=== PATIENT | male | born 1995 | race African-American/Black ===

== ENCOUNTER 2019-05-17 16:35 | Emergency (ER) | payer SELFPAY ==
--- NOTE | 2019-05-17 16:49 | PDOC ---
Rapid Medical Evaluation Time Seen by Provider: 05/17/19 16:46 Medical Evaluation: 05/17/19 16:46 CC: Passive SI PE: no focal deficits Orders: labs, urine Patient will proceed to ER for complete evaluation. Discharge Disposition - Diagnosis Depression - Referrals - Patient Instructions - Post Discharge Activity
[2019-05-17 16:54] VITALS: BMI 18.6
--- NOTE | 2019-05-17 17:16 | PDOC ---
History of Present Illness - General Chief Complaint: Suicidal Stated Complaint: SUCIDAL Time Seen by Provider: 05/17/19 16:46 History Source: Patient Exam Limitations: No Limitations - History of Present Illness Initial Comments: 05/17/19 17:15 Vitaliy Marie is a 24M with PMH suicide attempt and asthma presenting today with passive wish. Patient reports that he has been feeling depressed for months now, says that he drank a small amount of bleach a few months ago and since then his physical condition has worsened. Has intermittent chest pain and epigastric pain that may or may not be related to PO intake. Says he has not eaten much, had "one noodle" for breakfast with water. 3 hours of sleep last night. Says he feels isolated from his family and friends, who are improving their lives without him while he struggles to try and improve his own. Often tries to draw in his free time as an extension of this, subject matter is pop culture without any concerning visuals. Also does parkour with some foot pain after a fall. Today woke up, opened his eyes, and says he felt like he wanted to . Does not have a plan, did not attempt anything today. Denies HI. Says that he often sees his own casket, says it looks like a deep body of water that he will drown in. Denies any prior psych history, has never been diagnosed with a psych disorder and has no PMD f/u or other resources. Tried to walk to hospital but almost go run over by a car due to unsteady gait, ultimately took the bus here for help. Currently denies chest pain, epigastric pain. Denies HARDING, SOB, leg pain/swelling , dizziness. PMH asthma, no inhaler Possible seafood allergy Smokes <1 pack per week, last alcohol was 1 bottle of vodka 3 days ago, smoke marijuana intermittently Past History - Past Medical History Allergies/Adverse Reactions: Allergies Allergy/AdvReac Type Severity Reaction Status Date / Time No Known Allergies Allergy Verified 05/17/19 16:54 Asthma: Yes COPD: No - Immunization History Immunization Up to Date: Yes - Psycho Social/Smoking Cessation Hx Smoking History: Current every day smoker Have you smoked in the past 12 months: Yes Information on smoking cessation initiated: No Hx Alcohol Use: Yes (SOCIAL) Drug/Substance Use Hx: No (DENIES) Review of Systems - Review of Systems Able to Perform ROS?: Yes Constitutional: No: Chills, Fever HEENTM: No: Symptoms Reported Respiratory: No: Cough, Shortness of Breath, Wheezing Cardiac (ROS): Yes: Chest Tightness. No: Chest Pain, Irregular Heart Rate, Palpitations, Syncope ABD/GI: Yes: Poor Appetite, Poor Fluid Intake. No: Constipated, Diarrhea, Difficulty Swallowing, Nausea, Vomiting : No: Symptoms Reported Musculoskeletal: No: Symptoms Reported Integumentary: No: Symptoms Reported Neurological: No: Headache, Numbness, Tingling Psychiatric: Yes: Depression, Sleep Pattern Change, Emotional Problems, Change in Appetite Endocrine: No: Symptoms Reported Hematologic/Lymphatic: No: Symptoms Reported All Other Systems: Reviewed and Negative *Physical Exam - Vital Signs Last Vital Signs Temp Pulse Resp BP Pulse Ox 98.2 F 62 17 135/76 98 05/17/19 16:46 05/17/19 16:46 05/17/19 16:46 05/17/19 16:46 05/17/19 16:46 - Physical Exam General Appearance: Yes: Nourished, Appropriately Dressed, Thin. No: Apparent Distress HEENT: positive: EOMI, RICHA, Normal ENT Inspection, Normal Voice, Symmetrical, Pharynx Normal, Hearing Grossly Normal. negative: Scleral Icterus (R), Scleral Icterus (L), Muffled/Hoarse voice Neck: positive: Trachea midline, Normal Thyroid, Supple. negative: Tender, Lymphadenopathy (R), Lymphadenopathy (L), Tender lateral, Tender midline Respiratory/Chest: positive: Lungs Clear, Normal Breath Sounds. negative: Chest Tender, Respiratory Distress, Accessory Muscle Use, Crackles, Rales, Rhonchi, Stridor, Wheezing Cardiovascular: positive: Regular Rhythm, Regular Rate. negative: Murmur Gastrointestinal/Abdominal: positive: Normal Bowel Sounds, Flat, Soft. negative : Tender, Guarding, Rebound Musculoskeletal: positive: Normal Inspection. negative: CVA Tenderness Extremity: positive: Normal Capillary Refill, Normal Inspection, Normal Range of Motion, Pelvis Stable. negative: Tender, Pedal Edema, Swelling Integumentary: positive: Normal Color, Dry, Warm. 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 Poor PO intake, poor sleep. No plan but passive SI without HI. Keeping for psych eval and further disposition. No evidence of withdrawal at this time. Low suspicion of GI etiology of abdominal pain, no other GI symptoms, non-tender abdomen, no concerning PMH, no CT indicated at this time. - CMP for lyte eval given poor PO - CBC for infection eval vs. pancreatitis - lipase for epigastric pain/alcohol use - CXR/ECG for eval epigastric pain - UA/UC for UTI - ASA/APAP/ETOH/UTOX for tox eval - TSH for eval dysthymia as cause for depression Consult to Dr. Arriaza paged. 05/17/19 18:20 Labs notable for - CMP WNL - CBC WNL - Coags WNL - lipase WNL - ETOH low 05/17/19 18:22 CXR unremarkable for pathology on preliminary read. 05/17/19 18:[address] Arriaza, agrees to eval patient in the AM, put on 1:1, medically clear. Will sign out to PM team, plan for overnight obs and psych eval in the AM for further dispo planning for psych admission. Discharge - Discharge Information Problems reviewed: Yes Clinical Impression/Diagnosis: Suicidal ideation Depression Qualifiers: Depression Type: unspecified Qualified Code(s): F32.9 - Major depressive disorder, single episode, unspecified Condition: Stable - Follow up/Referral - Patient Discharge Instructions - Post Discharge Activity Work/Back to School Note: My Personal Safety Plan
[2019-05-17 17:35] LABS: BASO % 0.9 % (0-2.0); EOS % 4.4 % (0-4.5); HEMATOCRIT 42.3 % (35.4-49); HEMOGLOBIN 14.2 GM/dL (11.7-16.9); MCH 29.1 pg (25.7-33.7); MCHC 33.6 g/dl (32.0-35.9); MEAN CELL VOLUME 86.8 fl (80-96); MEAN PLT VOLUME 9.2 fl (7.5-11.1); MONO % 6.3 % (3.8-10.2); NEUT % 58.4 % (42.8-82.8); PLATELET COUNT 211 K/MM3 (134-434); RBC 4.87 M/mm3 (4.00-5.60); RDW 13.6 % (11.9-15.9)
[2019-05-17] MEDS ORDERED: PANTOPRAZOLE 40 MG TABLET PO ONE (17:51)
[2019-05-17] MEDS ORDERED: ONDANSETRON *ODT* 4 MG TABLET SL ONE (17:51)
[2019-05-17] MEDS ORDERED: ONDANSETRON *ODT* 4 MG TABLET ONE (17:58)
[2019-05-17] MEDS ORDERED: PANTOPRAZOLE 40 MG TABLET ONE (17:58)
[2019-05-17 18:08] LABS: ALBUMIN 4.5 g/dl (3.4-5.0); BILIRUBIN,TOTAL 0.4 mg/dL (0.2-1); CALCIUM 9.6 mg/dL (8.5-10.1); CREATININE 1.1 mg/dL (0.55-1.3); POTASSIUM 3.7 mmol/L (3.5-5.1); TOT PROT 8.3 g/dl (6.4-8.2)
[2019-05-17] MEDS ORDERED: MAG HYDROX/AL HYDROX/SIMETH 30 ML UNIT-DOSE CUP PO ONE (18:14)
--- NOTE | 2019-05-17 18:14 | PDOC ---
Documentation entered by Louis Junior SCRIBE, acting as scribe for Alicia Pace DO. Alicia Pace DO: This documentation has been prepared by the Vernon louie Daniel, SCRIBE, under my direction and personally reviewed by me in its entirety. I confirm that the documentation accurately reflects all work, treatment, procedures, and medical decision making performed by me. Attending Attestation - Resident Resident Name: Ant Vazquez - ED Attending Attestation I have performed the following: I have examined & evaluated the patient, The case was reviewed & discussed with the resident, I agree w/resident's findings & plan, Exceptions are as noted - HPI HPI: 05/17/19 17:54 The patient is a 24 year old male with a past medical history of depression and past suicide attempts here today for evaluation of suicidal thoughts. The patient reports that he feels depressed and isolated. He states that since he drank household bleach 9 months ago he has had diffuse chest, abdominal, and epigastric pain. He reports that he woke up this morning with suicidal thoughts but denies having any plans. He denies any homicidal ideations. Patient notes some intermittent visual hallucinations that he describes as bright lights. He also reports that he engages in dangerous activities without any regard for his personal safety such as parkour. Patient denies headache, lightheadedness. Denies fever, chills. Denies shortness of breath. Denies nausea, vomiting, diarrhea. Allergies: NKA - Physicial Exam PE: 05/17/19 17:54 Constitutional: Awake, alert, oriented. Head: Normocephalic. Atraumatic Eyes: PERRL. EOMI. Conjunctivae are not pale. ENT: Mucous membranes are moist and intact. Posterior pharynx without exudates or erythema. Uvula midline. Neck: Supple. Full ROM. No lymphadenopathy. Cardiovascular: Regular rate. Regular rhythm. S1, S2 regular. Distal pulses are 2+ and symmetric. Pulmonary/Chest: No evidence of respiratory distress. Clear to auscultation bilaterally No wheezing, rales or rhonchi. Abdominal: Soft and non-distended. There is no tenderness. No rebound, guarding or rigidity. No organomegaly. No palpable masses. Good bowel sounds. Back: No CVA tenderness. Musculoskeletal: No edema. No cyanosis. No clubbing. Full range of motion in all extremities. Nocalf tenderness. Radial/pedal pulses are intact and 2+ bilaterally Skin: Skin is warm and dry. No petechiae. No purpura. Neurological: Alert and oriented to person, place, and time. Cranial nerves II -XII are grossly intact. Normal speech. Strength is grossly symmetric. No sensory deficits. Psychiatric: +flat affect. +depressed appearing. - Medical Decision Making 05/17/19 18:10 a/p: 24yo male with SI/depression and prior SI attempt by drinking bleach a few months ago -pt states he has tried to see a psychiatrist in the past and tried to see a doc in the past but didn't have the funds -admits to sometimes seeing lights - runs from the lights -pt denies HI -denies auditory hallucinations -pt states he tries all dangerous/adventurous sports/activities just to see if he will survive -pt denies plan for SI at this time -denies taking meds today -admits to drinking a bottle of vodka a few days ago- just to go to sleep forever -will send labs -admits to gastric burning/cp - since drinking bleach months ago -will consult psych - call placed to Dr. Amaya -will medicate -pt on 1:1 05/17/19 19:15 cxr clear labs reviewed and stable pt is medically clear for psych eval resident discussed the case with Dr. Amaya who will eval the patient in the AM 05/18/19 01:09 pt signed out to the oncoming ED team pending psych eval Heart Score/ECG Review - ECG Intrepretation Comment:: 05/17/19 19:34 sinus at 74, nl axis, nl interval, no acute st/t wave findings
[2019-05-17 18:19] LABS: INR 1.13 (0.83-1.09); PROTHROMBIN TIME (PATIENT) 13.4 SEC (9.7-13.0)
[2019-05-17 18:22] LABS: ACTIVATED PTT 35.2 SECONDS (25.2-36.5)
[2019-05-17] MEDS ORDERED: MAG HYDROX/AL HYDROX/SIMETH 30 ML UNIT-DOSE CUP ONE (18:30)
[2019-05-17 18:35] LABS: LIPASE 92 U/L (73-393)
--- NOTE | 2019-05-17 19:10 | PDOC ---
*Physical Exam - Vital Signs Last Vital Signs Temp Pulse Resp BP Pulse Ox 98.2 F 62 17 135/76 98 05/17/19 16:46 05/17/19 16:46 05/17/19 16:46 05/17/19 16:46 05/17/19 16:46 ED Treatment Course - LABORATORY CBC & Chemistry Diagram: 05/17/19 17:15 05/17/19 17:15 - ADDITIONAL ORDERS Additional order review: Laboratory Results 05/17/19 05/17/19 05/17/19 17:28 17:15 17:15 PT with INR 13.40 H INR 1.13 H PTT (Actin FS) 35.2 Sodium Potassium Chloride Carbon Dioxide Anion Gap BUN Creatinine Est GFR (CKD-EPI)AfAm Est GFR (CKD-EPI)NonAf Random Glucose Calcium Total Bilirubin AST ALT Alkaline Phosphatase Total Protein Albumin Lipase 92 TSH Salicylates < 1.7 L Acetaminophen <2.0 Alcohol, Quantitative < 3 05/17/19 17:15 PT with INR INR PTT (Actin FS) Sodium 136 Potassium 3.7 Chloride 100 Carbon Dioxide 27 Anion Gap 9 BUN 13.0 Creatinine 1.1 Est GFR (CKD-EPI)AfAm 108.32 Est GFR (CKD-EPI)NonAf 93.46 Random Glucose 85 Calcium 9.6 Total Bilirubin 0.4 AST 27 ALT 32 Alkaline Phosphatase 87 Total Protein 8.3 H Albumin 4.5 Lipase TSH 1.11 Salicylates Acetaminophen Alcohol, Quantitative 05/17/19 17:15 RBC 4.87 MCV 86.8 MCHC 33.6 RDW 13.6 MPV 9.2 Neutrophils % 58.4 Lymphocytes % 30.0 Monocytes % 6.3 Eosinophils % 4.4 Basophils % 0.9 - Medications Given in the ED: ED Medications Discontinued Medications Generic Name Dose Route Start Last Admin Trade Name Freq PRN Reason Stop Dose Admin Al Hydroxide/Mg Hydroxide 30 ml 05/17/19 18:14 05/17/19 18:50 Mylanta Oral Suspension - PO 05/17/19 18:15 30 ml ONCE ONE Administration Ondansetron HCl 4 mg 05/17/19 17:51 05/17/19 18:01 Zofran Odt - SL 05/17/19 17:52 4 mg ONCE ONE Administration Pantoprazole Sodium 40 mg 05/17/19 17:51 05/17/19 18:01 Protonix - PO 05/17/19 17:52 40 mg ONCE ONE Administration Medical Decision Making - Medical Decision Making 05/17/19 19:09 no other pmhx depressed, suicidal without a plan feels isolated from family and friends Dr. Amaya has been called coming in the morning labs wnl Utox to collect. signed out to Dr. Richey 05/30/19 21:42 Discharge - Discharge Information Problems reviewed: Yes Clinical Impression/Diagnosis: Suicidal ideation Depression Qualifiers: Depression Type: unspecified Qualified Code(s): F32.9 - Major depressive disorder, single episode, unspecified Condition: Stable Disposition: HOME - Follow up/Referral - Patient Discharge Instructions Patient Printed Discharge Instructions: DI for Suicidal Ideation-Adult Additional Instructions: You were seen and evaluated in the [place]. Please follow up with your PCP in the next week. Return to the ED with any or concerning symptoms. If you ever feel like hurting yourself or others please immediately call 911 or come to the nearest emergency department. We are always here to help. - Post Discharge Activity Work/Back to School Note: My Personal Safety Plan
[2019-05-18 02:05] LABS: PH,URINE 5.5 (5.0-8.0); URINE APPEARANCE CLEAR; URINE BILIRUBIN NEGATIVE (NEGATIVE); URINE COLOR YELLOW; URINE GLUCOSE (UA) NEGATIVE (NEGATIVE); URINE KETONE NEGATIVE (NEGATIVE); URINE LEUK ESTERASE NEGATIVE (NEGATIVE); URINE NITRITE NEGATIVE (NEGATIVE); URINE PROTEIN NEGATIVE (NEGATIVE); URINE UROBILINOGEN 0.2 mg/dL (0.2-1.0)
[2019-05-18 02:14] LABS: COCAINE, UR NEGATIVE ng/ml (CUTOFF=300); METHADONE, UR NEGATIVE ng/ml (CUTOFF=300); OPIATES, URI NEGATIVE ng/ml (CUTOFF=300); PHENCYCLIDINE,URINE NEGATIVE ng/ml (CUTOFF=25); URINE AMPHETAMINES NEGATIVE ng/ml (CUTOFF=500); URINE BARBITURATES NEGATIVE ng/ml (CUTOFF=200); URINE BENZODIAZEPINES NEGATIVE ng/ml (CUTOFF=200)
--- NOTE | 2019-05-18 07:38 | PDOC ---
*Physical Exam - Vital Signs Last Vital Signs Temp Pulse Resp BP Pulse Ox 98.3 F 64 19 117/78 100 05/18/19 07:25 05/18/19 07:25 05/18/19 07:25 05/18/19 07:25 05/18/19 07:25 ED Treatment Course - LABORATORY CBC & Chemistry Diagram: 05/17/19 17:15 05/17/19 17:15 - ADDITIONAL ORDERS Additional order review: Laboratory Results 05/18/19 05/18/19 01:35 01:35 Urine Color Yellow Urine Appearance Clear Urine pH 5.5 Ur Specific [place] 1.016 Urine Protein Negative Urine Glucose (UA) Negative Urine Ketones Negative Urine Blood Negative Urine Nitrite Negative Urine Bilirubin Negative Urine Urobilinogen 0.2 Ur Leukocyte Esterase Negative Opiates Screen Negative Methadone Screen Negative Barbiturate Screen Negative Phencyclidine Screen Negative Ur Amphetamines Screen Negative MDMA (Ecstasy) Screen Negative Benzodiazepines Screen Negative Cocaine Screen Negative U Marijuana (THC) Screen Negative 05/17/19 17:15 RBC 4.87 MCV 86.8 MCHC 33.6 RDW 13.6 MPV 9.2 Neutrophils % 58.4 Lymphocytes % 30.0 Monocytes % 6.3 Eosinophils % 4.4 Basophils % 0.9 - Medications Given in the ED: ED Medications Discontinued Medications Generic Name Dose Route Start Last Admin Trade Name Osmany PRN Reason Stop Dose Admin Al Hydroxide/Mg Hydroxide 30 ml 05/17/19 18:14 05/17/19 18:50 Mylanta Oral Suspension - PO 05/17/19 18:15 30 ml ONCE ONE Administration Ondansetron HCl 4 mg 05/17/19 17:51 05/17/19 18:01 Zofran Odt - SL 05/17/19 17:52 4 mg ONCE ONE Administration Pantoprazole Sodium 40 mg 05/17/19 17:51 05/17/19 18:01 Protonix - PO 05/17/19 17:52 40 mg ONCE ONE Administration Medical Decision Making - Medical Decision Making 05/18/19 07:[address] Erickson 24yo M suicidal ideation, denies plan, pending psychiatric evaluation Medically cleared AFVSS, comfortable Diet order is placed 05/18/19 10:33 Patient seen and evaluated by psychiatry, Dr. Amaya Cleared for discharge by psychiatry Dispo: Home Discharge - Discharge Information Problems reviewed: Yes Clinical Impression/Diagnosis: Suicidal ideation Depression Qualifiers: Depression Type: unspecified Qualified Code(s): F32.9 - Major depressive disorder, single episode, unspecified Condition: Stable Disposition: HOME - Admission No - Follow up/Referral - Patient Discharge Instructions Patient Printed Discharge Instructions: DI for Suicidal Ideation-Adult Additional Instructions: You were seen and evaluated in the [place] [facility]. Please follow up with your PCP in the next week. Return to the ED with any or concerning symptoms. If you ever feel like hurting yourself or others please immediately call 911 or come to the nearest emergency department. We are always here to help. - Post Discharge Activity Work/Back to School Note: My Personal Safety Plan
--- NOTE | 2019-05-18 10:31 | CON.PSY ---
Psychiatry Consult Chief Complaint: 24 Year old male, homeless for the past year , had been staying at [facility] for Chaz [facility]ers. patientv reports having drank a dye tub tender of [place] about 2 days ago and had thoughts of hurting himself but did not have any concrete plans. Psych admission 11 yrs ago. On No psych meds or getting Psych treatment. 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 He wanted me to get him a job. - Previous Psychiatric Treatment Outpatient: None Inpatient: None, One prior admission - Previous Substance Abuse Treatment Outpatient: None Inpatient: None - Reason for Previous Treatment Reason for Previous Treatment: Alcohol Abuse - Allergies Allergies: Allergies Allergy/AdvReac Type Severity Reaction Status Date / Time No Known Allergies Allergy Verified 05/17/19 16:54 - Current Living Status Usual Living Arrangement: Alone - Current Mental Status Evaluation Appearance: Well Groomed Attitude: Cooperative - Affect Affect: Constrictive Appropriateness: Appropriate to Content - Mood Mood: Euthymic - Speech/Language Expressive: Coherent - Psychomotor Activity Psychomotor Activity: Normal - Thought Process Thought Process: Intact - Thought Content Hallucinations: Absent Delusions: Absent - Self Perception Self Perception: No Impairment - Cognition Attention: Alert Orientation: Time Memory, Immediate Recall: Intact Memory, Short Term: 3/3 Memory, Remote with Promptin/3 - Concentration Serial Sevens Intact: Yes Simple Calculations Intact: Yes - Abstraction Proverb Interpretation: Intact Judgement: Minimally Impaired - Insight Insight: Intact - Impulse Control Impulse Control: Good Control - Suicidal Ideation Suicidal Ideation: No - Homicidal Ideation Homicidal Ideation: No Assessment/Plan 1) Patient is not suicidal, no plans. wants a job and is Homeless. 2) discharge from Er when medically stable. 3) Return to [facility].
[2019-05-18 10:45] VITALS: BP 115/65; PULSE 68; TEMP 98.5
--- NOTE | 2019-05-18 14:03 | EKG ---
Test Reason : Blood Pressure : / mmHG Vent. Rate : 074 BPM Atrial Rate : 074 BPM P-R Int : 152 ms QRS Dur : 082 ms QT Int : 388 ms P-R-T Axes : 057 032 042 degrees QTc Int : 430 ms NORMAL SINUS RHYTHM WITH SINUS ARRHYTHMIA NO PREVIOUS ECGS AVAILABLE Confirmed by MARGARITA SUNSHINE MD ([id number]) on 05/18/2019 2:02:53 PM Referred By: Confirmed By:MARGARITA SUNSHINE MD
== END 2019-05-18 10:57 | disposition home or self-care (01) ==
LOC: JER 16:35
DX: R45.851 Suicidal ideations (principal); F32.9 Major depressive disorder, single episode, unspecified; F17.210 Nicotine dependence, cigarettes, uncomplicated; J45.909 Unspecified asthma, uncomplicated
CPT/HCPCS: 36415; 71045-TC-FY; 80053; 80307; 81003; 83690; 84443; 85025; 85610; 85730; 93005; 93010; 99284-25; Q0162

== ENCOUNTER 2023-12-22 18:54 | Emergency (ER) | payer OTHER ==
[2023-12-22 19:02] VITALS: BP 134/83; TEMP 98; BMI 26.7
[2023-12-22] MEDS ORDERED: ACETAMINOPHEN 500 MG TABLET (FP) ONE (19:26)
[2023-12-22] MEDS: ACETAMINOPHEN 500 MG TABLET (FP) PO ONE (19:27)
[2023-12-22 19:48] LABS: EPI CELLS >36 /uL (0-25.1); HYALINE CASTS 3 /uL (0-3.1); URINE APPEARANCE CLEAR; URINE BACTERIA 27 /uL (0-1359); URINE BILIRUBIN NEGATIVE (NEGATIVE); URINE COLOR YELLOW; URINE GLUCOSE (UA) NEGATIVE (NEGATIVE); URINE KETONE TRACE (NEGATIVE); URINE LEUK ESTERASE 2+ (NEGATIVE); URINE NITRITE NEGATIVE (NEGATIVE); URINE PROTEIN NEGATIVE (NEGATIVE); URINE RBC 13 /uL (0-23.9); URINE WBC 240 /uL (0-25.8)
[2023-12-22 21:04] LABS: HIV INTERPRETATION NEGATIVE (NEGATIVE)
[2023-12-22 21:28] VITALS: PULSE 72; RESP 18
== END 2023-12-22 22:01 | disposition home or self-care (01) ==
LOC: JER 18:54
DX: N50.811 Right testicular pain (principal); N50.812 Left testicular pain
CPT/HCPCS: 36415; 76870-TC; 81003; 86803; 87086; 87389; 87491; 87591; 99284-25

== ENCOUNTER 2024-04-09 21:22 | Inpatient (IN) | payer OTHER ==
[2024-04-09 22:19] VITALS: BMI 27.3
[2024-04-09] MEDS ORDERED: NICOTINE POLACRILEX 4 MG GUM BUC PRN (22:30)
[2024-04-09] MEDS ORDERED: hydrOXYzine PAMOATE 25 MG CAPSULE (FP) PO PRN (22:30)
[2024-04-09] MEDS ORDERED: POLYETHYLENE GLYCOL (HEALTHYLAX) 3350 17 GM PACKET PO PRN (22:30)
[2024-04-09] MEDS ORDERED: BENZONATATE 200 MG CAPSULE PO PRN (22:30)
[2024-04-09] MEDS ORDERED: NALOXONE (NARCAN) HCL 4 MG/0.1 ML SPRAY NS PRN (22:30)
[2024-04-09] MEDS ORDERED: MAG HYDROX/AL HYDROX/SIMETH 30 ML UNIT-DOSE CUP PO PRN (22:30)
[2024-04-09] MEDS ORDERED: IBUPROFEN 400 MG TABLET (FP) PO PRN (22:30)
[2024-04-09] MEDS ORDERED: ALBUTEROL SO4 HFA INHALER IH PRN (22:30)
[2024-04-09] MEDS ORDERED: ACETAMINOPHEN 325 MG TABLET (FP) PO PRN (22:30)
[2024-04-09] MEDS ORDERED: LOPERAMIDE HCL 2 MG CAPSULE PO PRN (22:30)
[2024-04-09] MEDS ORDERED: guaiFENesin 600 MG TABLET.ER (FP) PO PRN (22:30)
[2024-04-09] MEDS ORDERED: BENZOCAINE/MENTHOL (CHLORASEPTIC ) LOZENGE MM PRN (22:30)
[2024-04-09] MEDS ORDERED: MAGNESIUM HYDROX 2400MG/30ML ORAL SUSPENSION 30 ML CUP PO PRN (22:30)
[2024-04-09] MEDS: MELATONIN 5 MG TABLETS PO SCH (23:23)
[2024-04-10 06:27] VITALS: BP 108/60; PULSE 69; RESP 17; TEMP 97.7
[2024-04-10] MEDS: IBUPROFEN 600 MG TABLET (FP) PO PRN (07:07)
[2024-04-10] MEDS: TUBERCULIN PPD 5 TU/0.1ML SYRINGE (IN PATIENT USE ONLY) ID ONE (07:35)
[2024-04-10] MEDS: PRENATAL VITAMINS W/ FOLIC ACID TABLET (FP) PO SCH (09:58)
[2024-04-10] MEDS: NICOTINE 14 MG/24 HOURS TOPICAL PATCH TD SCH (09:59)
[2024-04-10 11:25] LABS: HEMATOCRIT 43.7 % (35.4-49); HEMOGLOBIN 14.2 GM/dL (11.7-16.9); MCHC 32.6 g/dl (32.0-35.9); MEAN CELL VOLUME 89.2 fl (80-96); MEAN PLT VOLUME 9.3 fl (7.5-11.1); PLATELET COUNT 285 10^3/uL (134-434); RDW 13.7 % (11.9-15.9); WHITE BLOOD COUNT 8.4 K/mm3 (4.0-10.0)
[2024-04-10 11:42] LABS: CHLORIDE 104 mmol/L (98-107); POTASSIUM 4.4 mmol/L (3.5-5.1); SODIUM 138 mmol/L (136-145)
[2024-04-10 11:45] LABS: CALCIUM 9.6 mg/dL (8.5-10.1)
[2024-04-10 11:46] LABS: ALBUMIN 4.3 g/dl (3.4-5.0); ANION GAP 6 mmol/L (4-13); BLOOD UREA NITROGEN 12.2 mg/dL (7-18); CO2 28 mmol/L (21-32); GLUCOSE,RANDOM 90 mg/dL (74-106)
[2024-04-10 11:48] LABS: PH,URINE 5.5 (5.0-8.0); URINE APPEARANCE CLEAR; URINE BILIRUBIN NEGATIVE (NEGATIVE); URINE COLOR YELLOW; URINE GLUCOSE (UA) NEGATIVE (NEGATIVE); URINE KETONE TRACE (NEGATIVE); URINE LEUK ESTERASE NEGATIVE (NEGATIVE); URINE NITRITE NEGATIVE (NEGATIVE); URINE PROTEIN NEGATIVE (NEGATIVE); URINE UROBILINOGEN 0.2 mg/dL (0.2-1.0)
[2024-04-10 11:49] LABS: CREATININE 1.1 mg/dL (0.55-1.3); SGOT/AST 31 U/L (15-37); SGPT/ALT 38 U/L (13-61)
[2024-04-10 11:51] LABS: BILIRUBIN,TOTAL 0.5 mg/dL (0.2-1); TOT PROT 7.8 g/dl (6.4-8.2)
[2024-04-10 11:52] LABS: ALK PHOS 101 U/L (45-117)
[2024-04-10 12:24] LABS: SYPHILIS W/ RPR CONF NON-REACTIVE (NONREACTIVE)
[2024-04-10] MEDS: NALOXONE (NYS OPIOID OVERDOSE PROGRAM) 4 MG/0.1 ML SPRAY NS SCH (14:41)
[2024-04-10] MEDS ORDERED: THIAMINE 100 MG TABLET PO SCH (22:00)
== END 2024-04-10 14:38 | disposition left against medical advice (07) | DRG 770 ==
LOC: YASAS 21:22 → Y3NR 22:41
PROVIDERS: ADMIT Psychiatry & Neurology Pain Medicine; ATTEND Psychiatry & Neurology Pain Medicine
PROC: HZ42ZZZ Group Counseling for Substance Abuse Treatment, Cognitive-Behavioral (ICD-10-PCS; principal; 2024-04-09)
DX: F10.20 Alcohol dependence, uncomplicated (principal); F17.210 Nicotine dependence, cigarettes, uncomplicated; F25.9 Schizoaffective disorder, unspecified; F41.9 Anxiety disorder, unspecified; J45.909 Unspecified asthma, uncomplicated; Z56.0 Unemployment, unspecified; Z59.00 Homelessness unspecified
CPT/HCPCS: 36415; 80053; 80307; 81003; 85027; 86780; 86803; 93005; 93010